=== PATIENT | female | born 1970 | race Caucasian/White ===

== ENCOUNTER → 2016-12-02 | Outpatient (CLI) | payer OTHER ==
--- NOTE | ~2016-12-02 | XA35 ---
[facility] A Service of [facility] & [facility] / [facility] RADIOLOGY TEXT RESULTS PATIENT: ALKA EVANS LOCATION: [facility] : 66 UNIT #: [id number] AGE: [address]: Ezra Moya MD SEX: F ORDER DR: [id number] [facility] [address] [facility]. [place], [place] [address] [id number] O MR#: [id number] Acc #: [id number] NAME: ALKA EVANS : 1970 SEX: F STUDY DATE/TIME: 12/02/2016 11:47 UNIT: [facility] ROOM: STUDY DESCRIPTION: XA Arthrogram Shoulder Rt Attending Physician: Ezra Moya M.D. Referring Physician: Ezra Moya M.D. Ordering Physician: Ezra Moya M.D. Primary Care Physician: William Zurita M.D. MEDICAL IMAGING REPORT This report is preliminary unless electronic signature is present EXAM Right shoulder arthrogram HISTORY Shoulder injury several weeks ago moving a patient. Right shoulder pain. TECHNIQUE Using sterile technique and following local anesthesia with 1% Xylocaine a 22-gauge spinal needle was placed into the shoulder joint under fluoroscopic guidance. Two spot films were obtained with total fluoroscopy time of 0.5 minutes and a total dose of 15 mGy. The shoulder joint was injected with approximately 12 mL of a mixture comprised of 15 mL of Isovue and 0.1 mL of MultiHance. No rotator cuff tear is noted. The patient was sent for MRI scanning with results reported separately. IMPRESSION Negative shoulder arthrogram. MRI scanning is pending. Dictated by... Tyree Coelho M.D. THIS IS AN ELECTRONICALLY VERIFIED REPORT Tyree Coelho M.D. at 12/02/2016 4:33 PM Dalila TD: 12/02/2016 14:07 JOB #: [id number] MEDICAL IMAGING REPORT Page 1 of 1 COPY
== END | disposition home or self-care (01) ==
LOC: CIVR 11:32 → CMRI 13:00
DX: M25.511 Pain in right shoulder (principal); Z87.898 Personal history of other specified conditions
CPT/HCPCS: 73040; Q9967